=== PATIENT | male | born 1975 | race Caucasian/White ===

== ENCOUNTER 2018-04-30 16:11 | Emergency (ER) | payer OTHER ==
[~2018-04-30] VITALS: Ht 175.3 cm; Wt 100.2 kg
[2018-04-30 17:44] LABS: BASOPHIL % 0.8 % (0-2); PLATELET COUNT 304 x10^3mcL (130-400)
[2018-04-30 17:45] LABS: RED CELL DISTRIBUTION WIDTH 16.2 % (11.5-14.5)
[2018-04-30 17:49] LABS: CALCIUM 9.3 mg/dL (8.5-10.1); CARBON DIOXIDE 29.8 mmol/L (21-32); CHLORIDE SERUM 100 mmol/L (98-107); CREATININE SERUM 1.2 mg/dL (0.7-1.3); GFR1 > 60 mL/min; GLUCOSE SERUM 101 mg/dL (74-106); POTASSIUM SERUM 3.9 mmol/L (3.5-5.1); SODIUM SERUM 135 mmol/L (136-145)
[2018-04-30 17:54] LABS: ALKALINE PHOSPHATASE 84 U/L (46-116); ALT/SGPT 104 U/L (16-63); AST/SGOT 39 U/L (15-37); BILIRUBIN TOTAL 0.73 mg/dL (0.20-1.00); LIPASE 198 IU/L (73-393)
[2018-04-30 17:55] LABS: TOTAL PROTEIN, SERUM 8.8 g/dL (6.4-8.2)
[2018-04-30 20:27] VITALS: BP 122/73
== END 2018-04-30 20:27 | disposition home or self-care (01) ==
LOC: ED 16:11
PROVIDERS: Emergency Medicine
DX: K57.32 Diverticulitis of large intestine without perforation or abscess without bleeding (principal)
CPT/HCPCS: 36415; J1885